=== PATIENT | male | born 1980 | race Two or more races ===

== ENCOUNTER 2016-12-14 11:01 | Outpatient (CLI) | payer BC ==
[2016-12-14 11:28] LABS: BASOPHILS % (AUTO) 0.6 % (0.0-2.0); EOSINOPHILS # (AUTO) 0.1 /CMM (0.0-0.7); EOSINOPHILS % (AUTO) 2.1 % (0.0-6.0); HEMATOCRIT 47 % (39-51); HEMOGLOBIN 16.2 g/dL (13.5-17.5); LYMPHOCYTES # (AUTO) 1.2 /CMM (0.8-4.8); LYMPHOCYTES % (AUTO) 24.4 % (20.0-44.0); MEAN CORPUSCULAR HEMOGLOBIN 30 PG (26.0-33.0); MEAN CORPUSCULAR HGB CONC 34 g/dl (31.0-36.0); MEAN CORPUSCULAR VOLUME 87 fL (80-96); MONOCYTES # (AUTO) 0.3 /CMM (0.1-1.30); MONOCYTES % (AUTO) 5.6 % (2.0-12.0); NEUTROPHILS # (AUTO) 3.3 /CMM (1.8-8.9); NEUTROPHILS % (AUTO) 67.3 % (43.0-81.0); PLATELET COUNT (AUTO) 315 /CMM (150-450); RDW COEFFICIENT OF VARIATION 12.4 (11.5-15.0); RED BLOOD CELL COUNT(AUTO) 5.48 MIL/uL (4.5-6.0); WHITE BLOOD COUNT (AUTO) 4.9 K/uL (4.3-11.0)
[2016-12-14 12:11] LABS: ALBUMIN 4.5 g/dL (3.4-5.0); BILIRUBIN,TOTAL 0.6 mg/dL (0.2-1.0); CALCIUM, SERUM 9.4 mg/dL (8.5-10.1); MAGNESIUM 2.4 mg/dL (1.8-2.4); POTASSIUM 3.9 mmol/L (3.5-5.1); TOTAL PROTEIN, SERUM 8.6 g/dL (6.4-8.2)
[2016-12-14 12:37] LABS: THYROID STIMULATING HORMONE 1.369 uIU/mL (0.358-3.74)
[2016-12-15 12:14] LABS: T3 TOTAL 115 ng/dL (71-180)
[2016-12-15 13:14] LABS: H. PYLORI AB IgA <9.0 units (0.0-8.9)
== END 2016-12-14 23:59 | disposition home or self-care (01) ==
LOC: LAB 11:01
PROVIDERS: ATTEND Family Medicine
DX: R07.9 Chest pain, unspecified (principal)
CPT/HCPCS: 36415; 71020-TC; 80053-TC; 80061-TC; 83735-TC; 84439-TC; 84443-TC; 84480; 85025-TC; 86677

== ENCOUNTER → 2016-12-15 | Outpatient (CLI) | payer BC | END | disposition home or self-care (01) | LOC: CARD 10:51 | PROVIDERS: ATTEND Family Medicine | DX: I34.0 Nonrheumatic mitral (valve) insufficiency (principal) | CPT/HCPCS: 93307-TC ==

== ENCOUNTER 2018-03-18 09:25 | Emergency (ER) | payer BC, OTHER ==
[~2018-03-18] VITALS: Ht 175.3 cm; Wt 74.8 kg
[2018-03-18 09:25] VITALS: BP 140/99
== END 2018-03-18 10:35 | disposition home or self-care (01) ==
LOC: ER 09:33
DX: M76.62 Achilles tendinitis, left leg (principal)
CPT/HCPCS: 73650; 99284; A4606; Z7610

== ENCOUNTER 2019-06-18 13:08 | Emergency (ER) | payer BC, OTHER ==
[~2019-06-18] VITALS: Ht 175.3 cm; Wt 72.6 kg
--- NOTE | 2019-06-18 13:25 | NUR ---
DR BRADY AT BEDSIDE
--- NOTE | 2019-06-18 13:27 | NUR ---
CAME IN FOR COUGH, CONGESTION, AND FEVER, TEMP 99.4, TO ER BED 10, HOOKED TO MONITOR, AWAITING MD CONLEY.
--- NOTE | 2019-06-18 13:43 | NUR ---
RAPID FLU SWAB SENT TO LAB
--- NOTE | 2019-06-18 15:39 | NUR ---
Patient discharged to home in stable condition. Written and verbal after care instructions given. Patient verbalizes understanding of instruction.
[2019-06-18 15:42] VITALS: BP 124/90
== END 2019-06-18 15:42 | disposition home or self-care (01) ==
LOC: ER 13:10
DX: J40 Bronchitis, not specified as acute or chronic (principal); J10.1 Influenza due to other identified influenza virus with other respiratory manifestations
CPT/HCPCS: 71045-TC

== ENCOUNTER 2021-01-11 11:04 | Outpatient (CLI) | payer BC, OTHER ==
[2021-01-11 11:47] LABS: BASOPHILS % (AUTO) 0.6 % (0.0-2.0); EOSINOPHILS % (AUTO) 1.4 % (0.0-6.0); HEMATOCRIT 44 % (39-51); HEMOGLOBIN 14.7 g/dL (13.5-17.5); LYMPHOCYTES # (AUTO) 1.7 K/uL (0.8-4.8); LYMPHOCYTES % (AUTO) 23.2 % (20.0-44.0); MEAN CORPUSCULAR HGB CONC 34 g/dl (31.0-36.0); MEAN CORPUSCULAR VOLUME 88 fL (80-96); MONOCYTES # (AUTO) 0.6 K/uL (0.1-1.30); MONOCYTES % (AUTO) 8.6 % (2.0-12.0); NEUTROPHILS # (AUTO) 4.8 K/uL (1.8-8.9); NEUTROPHILS % (AUTO) 66.2 % (43.0-81.0); PLATELET COUNT (AUTO) 348 K/uL (150-450); RED BLOOD CELL COUNT(AUTO) 4.93 MIL/uL (4.5-6.0); WHITE BLOOD COUNT (AUTO) 7.2 K/uL (4.3-11.0)
[2021-01-11 13:13] LABS: URIC ACID 6.9 mg/dL (2.6-7.2)
[2021-01-11 13:30] LABS: ALBUMIN 3.9 g/dL (3.4-5.0); BILIRUBIN,TOTAL 0.6 mg/dL (0.2-1.0); CALCIUM, SERUM 9.4 mg/dL (8.5-10.1); CREATININE 1.1 mg/dL (0.6-1.3); POTASSIUM 4.3 mmol/L (3.5-5.1); TOTAL PROTEIN, SERUM 8.7 g/dL (6.4-8.2)
== END 2021-01-11 23:59 | disposition home or self-care (01) ==
LOC: LAB 11:04
PROVIDERS: ATTEND Family Medicine
DX: M10.9 Gout, unspecified (principal)
CPT/HCPCS: 36415; 80053-TC; 84550-TC; 85025-TC

== ENCOUNTER 2022-09-09 14:13 | Inpatient (IN) | payer BC, OTHER ==
[~2022-09-09] VITALS: Ht 175.3 cm; Wt 78.5 kg
--- NOTE | 2022-09-09 16:06 | NUR ---
RN ADMITTING NOTES RECEIVED PATIENT VIA GURCHRISTEN ACCOMPANIED BY TWO microarray analyst AND . A/Ox3, ABLE TO MAKE NEEDS KNOWN. ON ROOM AIR NO S/S OF RESPIRATORY DISTRESS. ORIENTED TO ROOM, STAFF, AND CALL LIGHT. IV ACCESS R WRIST #20G, INTACT AND PATENT. FULL BODY ASSESSMENT COMPLETED: CARDIAC WNL, LUNG WNL, GI/ WNL, SKIN INTACT. NO C/O OF PAIN OR DISCOMFORT NOTED. SAFETY MEASURES IN [facility]: BED LOCKED AND IN LOWEST POSITION, HOB ELEVATED, CALL LIGHT WITHIN REACH, SIDE RAILS UPx2. Addendum: 09/09/22 at 1613 by LLOYD PHAN RN ADDENDUM: ATTACHED TO TELE MONITORING SHOWING SINUS RHYTHM HR 72, NO C/O OF CHEST PAIN OR DISCOMFORT.
[2022-09-09] MEDS ORDERED: ACET-868 PO (16:11)
[2022-09-09] MEDS ORDERED: ASPI-992 PO (16:11)
[2022-09-09] MEDS ORDERED: CHLO473M3 MM (16:11)
[2022-09-09] MEDS ORDERED: FAMO20TA8 PO (16:11)
[2022-09-09] MEDS ORDERED: ATOR40TA PO (16:11)
[2022-09-09] MEDS ORDERED: PIPE3.379 IV (16:11)
[2022-09-09] MEDS ORDERED: ENOX40DI SQ (16:11)
[2022-09-09] MEDS ORDERED: LEVA0.6320 IH (16:11)
[2022-09-09] MEDS ORDERED: ONDA4TAB5 PO (16:11)
[2022-09-09 16:25] VITALS: BP 145/99
--- NOTE | 2022-09-09 18:45 | NUR ---
STENOGRAPHER SECRETARY CLOSING NOTES PATIENT AWAKE IN BED, A/Ox3 ABLE TO MAKE NEEDS KNOWN. STABLE ON ROOM AIR, NO S/S OF RESPIRATORY DISTRESS. ON TELE MONITOR SHOWING SINUS RHYTHM HR 77, NO C/O OF CHEST PAIN OR DISCOMFORT. IV ACCESS R WRIST #20G S/L. INTACT AND PATENT. PATIENT CONTINENT USES URINAL. ON BEDREST. SKIN INTACT. SAFETY MEASURES MAINTAINED: BED LOCKED AND IN LOWEST POSITION, HOB ELEVATED, CALL LIGHT WITHIN REACH, SIDE RAILS UPx2. WILL ENDORSE TO NEXT SHIFT ANY ROXANNE.
[2022-09-09] MEDS ORDERED: Z GUARD REMEDY 4 OZ OINT TP PRN (19:00)
[2022-09-09] MEDS ORDERED: MAG HYDROX/AL HYDROX/SIMETH 30 ML UDC PO PRN (19:00)
[2022-09-09] MEDS ORDERED: ZOLPIDEM TARTRATE 5 MG TABLET PO PRN (19:00)
[2022-09-09] MEDS ORDERED: ONDANSETRON HCL/PF 4 MG/2 ML VIAL IVP PRN (19:00)
[2022-09-09] MEDS ORDERED: Medication Not On Formulary EA (Ondansetron Hcl (Zofran) 4 MG) PO PRN (19:00)
[2022-09-09] MEDS ORDERED: ACETAMINOPHEN 325 MG TABLET PO PRN (19:00)
[2022-09-09] MEDS ORDERED: MAGNESIUM HYDROXIDE 30 ML UDC PO PRN (19:00)
[2022-09-09] MEDS: IV NS 0.9% 1,000 ML IV PRN (19:41)
[2022-09-09 20:00] VITALS: BP 143/94
[2022-09-09] MEDS: ALBUTEROL FS 2.5 MG/3 ML VIAL.NEB NEB SCH (20:27)
--- NOTE | 2022-09-09 20:53 | NUR ---
RECEIVED PATIENT IN BED, ALERT/ORIENTED X3, CALM, SOFT SPOKEN, NO COMPLAIN OF PAIN, ROOM AIR, SR ON THE TELE, STARTED ON IVF, BREATHING TREATMENT WAS GIVEN BY RT, S/P EXTUBATION, DIRECT ADMIT FROM [facility]. PER PATIENT, FIRST TIME TO EAT SINCE EXTUBATION. OFFERED JELLO, PUDDING, AND CRACKERS. AT THE BEDSIDE PARTICIPATING IN CARE. KEPT SAFE, WILL CONTINUE TO MONITOR.
[2022-09-10] VITALS: BP 122/80
[2022-09-10 04:00] VITALS: BP 136/91
--- NOTE | 2022-09-10 05:50 | NUR ---
Pt refusing ordered routine ABG at this time. No SOB/resp distress noted at this time.
--- NOTE | 2022-09-10 06:26 | NUR ---
DIRECT ADMIT FROM [facility], [facility] AL[facility]ED MENTAL STATUS. SR ON THE TELE, ON ADMISSION, PATIENT IS ALERT/ORIENTED X4, STABLE ON ROOM AIR, NO COMPLAIN OF PAIN, REGULAR DIET, NO COMPLAIN OF N/V. PER REPORT, EXTUBATED 09/08/22. PULMONARY CONSULT, CHEST XRAY, AM LABS, PT EVAL. REFUSED ABG THIS MORNING.
[2022-09-10] MEDS: IV NS 0.9% 1,000 ML IV PRN (06:38)
[2022-09-10 07:00] VITALS: BP 142/96
[2022-09-10 07:04] LABS: BASOPHILS % (AUTO) 0.3 % (0.0-2.0); HEMATOCRIT 39 % (39-51); HEMOGLOBIN 12.8 g/dL (13.5-17.5); LYMPHOCYTES # (AUTO) 1.2 K/uL (0.8-4.8); LYMPHOCYTES % (AUTO) 11.7 % (20.0-44.0); MEAN CORPUSCULAR HGB CONC 33 g/dl (31.0-36.0); MEAN CORPUSCULAR VOLUME 89 fL (80-96); MONOCYTES # (AUTO) 0.9 K/uL (0.1-1.30); MONOCYTES % (AUTO) 8.3 % (2.0-12.0); NEUTROPHILS # (AUTO) 8.2 K/uL (1.8-8.9); NEUTROPHILS % (AUTO) 78.7 % (43.0-81.0); PLATELET COUNT (AUTO) 284 K/uL (150-450); RED BLOOD CELL COUNT(AUTO) 4.35 MIL/uL (4.5-6.0); WHITE BLOOD COUNT (AUTO) 10.4 K/uL (4.3-11.0)
--- NOTE | 2022-09-10 07:06 | NUR ---
APPLICATION SECURITY SPECIALIST OPENING NOTES RECEIVED PATIENT RESTING IN BED, A/Ox3 ABLE TO MAKE NEEDS KNOWN. ON ROOM AIR, NO S/S OF RESPIRATORY DISTRESS. ON TELE MONITOR SHOWING SINUS RHYTHM HR 70, NO C/O OF CHEST PAIN OR DISCOMFORT. IV ACCESS R WRIST #20G RUNNING NS @75 ML/HR. INTACT AND PATENT. PATIENT CONTINENT USES URINAL. ON BEDREST. SKIN INTACT. SAFETY MEASURES IN PLACE: BED LOCKED AND IN LOWEST POSITION, HOB ELEVATED, CALL LIGHT WITHIN REACH, SIDE RAILS UPx2. WILL CONTINUE TO MONITOR.
[2022-09-10 07:29] LABS: ALBUMIN 2.9 g/dL (3.4-5.0); BILIRUBIN,TOTAL 0.4 mg/dL (0.2-1.0); MAGNESIUM 2.4 mg/dL (1.8-2.4); PHOSPHORUS 3.1 mg/dL (2.5-4.9); POTASSIUM 3.8 mmol/L (3.5-5.1)
[2022-09-10] MEDS: ALBUTEROL FS 2.5 MG/3 ML VIAL.NEB NEB SCH ×4 (07:57→19:49)
[2022-09-10] MEDS: ENOXAPARIN SODIUM 40 MG/0.4 ML DISP.SYRIN SQ SCH (08:53)
[2022-09-10] MEDS: CHLORHEXIDINE GLUCONATE 15 ML UDC MM SCH ×3 (08:55→16:59)
[2022-09-10] MEDS: ATORVASTATIN 40 MG TABLET PO SCH (08:56)
[2022-09-10] MEDS: FAMOTIDINE (20 MG) 20 MG TABLET PO SCH ×2 (08:56→16:56)
[2022-09-10] MEDS: ASPIRIN 325 MG TABLET PO SCH (08:56)
[2022-09-10] MEDS ORDERED: COLC0.6C3 PO (12:16)
[2022-09-10] MEDS ORDERED: Medication Not On Formulary EA (Colchicine 0.6 MG) PO PRN (12:30)
[2022-09-10] MEDS: COLCHICINE 0.6 MG TABLET PO PRN ×2 (15:41→19:48)
--- NOTE | 2022-09-10 15:50 | NUR ---
RN NOTES PATIENT COMPLAINED OF GOUT SYMPTOMS, PRN COLCHICINE ADMINISTERED.
[2022-09-10 16:00] VITALS: BP 158/101
[2022-09-10] MEDS: ACETAMINOPHEN 325 MG TABLET PO PRN ×2 (17:00→21:35)
--- NOTE | 2022-09-10 18:53 | NUR ---
TUBE BENDING MACHINE OPERATOR CLOSING NOTES PATIENT AWAKE IN BED, A/Ox3 ABLE TO MAKE NEEDS KNOWN. STABLE ON ROOM AIR, NO S/S OF RESPIRATORY DISTRESS. ON TELE MONITOR SHOWING SINUS RHYTHM HR 66, NO C/O OF CHEST PAIN OR DISCOMFORT. IV ACCESS R WRIST #20G RUNNING NS @75 ML/HR. INTACT AND PATENT. PATIENT CONTINENT USES URINAL. ON BEDREST. SKIN INTACT. SAFETY MEASURES MAINTAINED: BED LOCKED AND IN LOWEST POSITION, HOB ELEVATED, CALL LIGHT WITHIN REACH, SIDE RAILS UPx2. WILL ENDORSE TO NEXT SHIFT ANY ROXANNE.
--- NOTE | 2022-09-10 19:35 | NUR ---
WATER SOFTENER INSTALLER OPENING NOTES PATIENT AWAKE IN BED, A/Ox3 ABLE TO MAKE NEEDS KNOWN. STABLE ON ROOM AIR, NO S/S OF RESPIRATORY DISTRESS. ON TELE MONITOR SHOWING SINUS RHYTHM HR 66, NO C/O OF CHEST PAIN OR DISCOMFORT. IV ACCESS R WRIST #20G RUNNING NS @75 ML/HR. INTACT AND PATENT. PATIENT CONTINENT USES URINAL. ON BEDREST. SKIN INTACT. SAFETY MEASURES MAINTAINED: BED LOCKED AND IN LOWEST POSITION, HOB ELEVATED, CALL LIGHT WITHIN REACH, SIDE RAILS UPx2.
--- NOTE | 2022-09-10 19:48 | NUR ---
RN NOTE PRN GOUT MEDICATION GIVEN TOLERATED WELL.
[2022-09-10 20:00] VITALS: BP 145/96
--- NOTE | 2022-09-10 21:35 | NUR ---
RN NOTE PRN TYLENOL GIVEN TOLERATED WELL.
[2022-09-10] MEDS ORDERED: INDOMETHACIN 25 MG CAPSULE ONE (22:09)
[2022-09-10] MEDS: INDOMETHACIN 25 MG CAPSULE PO PRN (22:12)
--- NOTE | 2022-09-10 22:15 | NUR ---
RN NOTE PRN INDOCIN AND TYLENOL GIVEN AND TOLERATE WELL.
[2022-09-11] VITALS: BP 130/75
[2022-09-11 04:00] VITALS: BP 131/83
--- NOTE | 2022-09-11 06:40 | NUR ---
MAGAZINE PUBLISHER CLOSING NOTES PATIENT AWAKE IN BED, A/Ox3 ABLE TO MAKE NEEDS KNOWN. STABLE ON ROOM AIR, NO S/S OF RESPIRATORY DISTRESS. ON TELE MONITOR SHOWING SINUS RHYTHM HR 60S, NO C/O OF CHEST PAIN OR DISCOMFORT. IV ACCESS R WRIST #20G RUNNING NS @75 ML/HR. INTACT AND PATENT. PATIENT CONTINENT USES URINAL. ON BEDREST. SKIN INTACT. SAFETY MEASURES MAINTAINED: BED LOCKED AND IN LOWEST POSITION, HOB ELEVATED, CALL LIGHT WITHIN REACH, SIDE RAILS UPx2. WILL ENDORSE CARE TO DAY SHIFT NURSE.
--- NOTE | 2022-09-11 07:30 | NUR ---
PATIENT RECEIVED RESTING COMFORTABLY IN BED. NO S/S OR C/O PAIN OR DISTRESS NOTED. SIDE RAILS UP X2, CALL LIGHT LEFT WITHIN REACH. WILL CONTINUE PLAN OF CARE.
[2022-09-11 08:38] VITALS: BP 131/96
[2022-09-11] MEDS: ALBUTEROL FS 2.5 MG/3 ML VIAL.NEB NEB SCH ×2 (08:44→11:22)
[2022-09-11] MEDS: CHLORHEXIDINE GLUCONATE 15 ML UDC MM SCH ×2 (09:19→12:25)
[2022-09-11] MEDS: ATORVASTATIN 40 MG TABLET PO SCH (09:20)
[2022-09-11] MEDS: ASPIRIN 325 MG TABLET PO SCH (09:20)
[2022-09-11] MEDS: FAMOTIDINE (20 MG) 20 MG TABLET PO SCH (09:20)
[2022-09-11] MEDS: ENOXAPARIN SODIUM 40 MG/0.4 ML DISP.SYRIN SQ SCH (09:22)
[2022-09-11 09:41] LABS: BASOPHILS % (AUTO) 0.3 % (0.0-2.0); HEMATOCRIT 42 % (39-51); HEMOGLOBIN 13.6 g/dL (13.5-17.5); LYMPHOCYTES # (AUTO) 1.1 K/uL (0.8-4.8); MEAN CORPUSCULAR HGB CONC 33 g/dl (31.0-36.0); MEAN CORPUSCULAR VOLUME 88 fL (80-96); MONOCYTES # (AUTO) 1.1 K/uL (0.1-1.30); MONOCYTES % (AUTO) 11.6 % (2.0-12.0); NEUTROPHILS # (AUTO) 7.3 K/uL (1.8-8.9); NEUTROPHILS % (AUTO) 75.1 % (43.0-81.0); PLATELET COUNT (AUTO) 314 K/uL (150-450); RED BLOOD CELL COUNT(AUTO) 4.74 MIL/uL (4.5-6.0); WHITE BLOOD COUNT (AUTO) 9.7 K/uL (4.3-11.0)
[2022-09-11 10:00] VITALS: BP 131/96
[2022-09-11 10:11] LABS: CALCIUM, SERUM 8.8 mg/dL (8.5-10.1); POTASSIUM 3.3 mmol/L (3.5-5.1)
[2022-09-11] MEDS: COLCHICINE 0.6 MG TABLET PO PRN (10:40)
[2022-09-11] MEDS: INDOMETHACIN 25 MG CAPSULE PO PRN (10:40)
[2022-09-11] MEDS ORDERED: ASPI-1169 PO (11:34)
[2022-09-11] MEDS ORDERED: ATOR40TA PO (11:34)
[2022-09-11] MEDS ORDERED: AMOX-430 PO (11:34)
[2022-09-11 11:52] VITALS: BP 148/95
[2022-09-11] MEDS ORDERED: PIPERACILLIN /TAZOBACTAM 3.375 G in IV D5W 50 ML IV SCH (12:00)
--- NOTE | 2022-09-11 16:10 | NUR ---
DISCHARGE INSTRUCTIONS GIVEN ORDERED. ENCOURAGED TO FOLLOW UP WITH PRIMARY DOCTOR INSTRUCTED. ALL QUESTIONS AND CONCERNS ADDRESSED. PATIENT VERBALIZED UNDERSTANDING. MEDIATION RECONCILIATION FORM COMPLETED AND COPY GIVEN TO PATIENT. IV REMOVED WITH CATHETER INTACT. PRESSURE DRESSING APPLIED. PATIENT TAKEN TO VEHICLE VIA WHEELCHAIR WITH ALL PERSONAL BELONGINGS, ACCOMPANIED BY STAFF AND FAMILY MEMBER. NO DISTRESS NOTED AT TIME OF DEPARTURE.
--- NOTE | 2022-09-11 16:20 | NUR ---
RECEIVED CALL FROM SISTER IN LAW SHE STATED PATIENT ADMITTED TO HERSELF, HIS BROTHER (), AND THAT HE ATTEMPTED SUICIDE, WHICH IS WHAT LEAD TO THIS ADMISSION. IN LAW CALLED TO SEEK ADVICE FOR NEXT STEPS. I CONSULTED WITH CHARGE NURSE AND ATTENDING REDUCING SALON ATTENDANT. I WAS ADVISED TO REACH OUT TO PATIENT TO ASSESS IF PATIENT CURRENTLY HAS SUICIDAL IDEATION AND A PLAN. Addendum: 09/11/22 at 1840 by ALTON WHEATLEY RN I SPOKE WITH PATIENT OVER THE PHONE AND HE STATED HE DOES NOT CURRENTLY HAVE SUICIDAL IDEATION NOR A PLAN TO KILL HIMSELF.
== END 2022-09-11 16:15 | disposition home or self-care (01) | DRG 177 ==
LOC: TELE 15:49
PROVIDERS: ADMIT Nurse Practitioner Acute Care; ATTEND Nurse Practitioner Acute Care
DX: J69.0 Pneumonitis due to inhalation of food and vomit (principal); G92.8 Other toxic encephalopathy; J96.01 Acute respiratory failure with hypoxia; M10.9 Gout, unspecified
CPT/HCPCS: 36415; 71045-TC; 80048-TC; 80053-TC; 83735-TC; 84100-TC; 85025-TC; 87081-TC; 94799-TC; 97110-TC; 97116-TC; A4223; G0378; J1650; J2543; J7030; J7060

== ENCOUNTER 2022-09-21 12:11 | Outpatient (CLI) | payer BC, OTHER ==
[~2022-09-21 12:11] MED LIST: AMOX-430 PO; ASPI-1169 PO; ATOR40TA PO; COLC0.6C3 PO
== END 2022-09-21 23:59 | disposition home or self-care (01) ==
LOC: RAD 12:11
PROVIDERS: ATTEND Internal Medicine Pulmonary Disease
DX: R07.9 Chest pain, unspecified (principal)
CPT/HCPCS: 71046

== ENCOUNTER → 2022-10-31 | Outpatient (CLI) | payer BC, OTHER | END | disposition home or self-care (01) | LOC: RAD 10:27 | PROVIDERS: ATTEND Family Medicine | DX: M25.572 Pain in left ankle and joints of left foot (principal); M79.672 Pain in left foot | CPT/HCPCS: 73610-TC; 73630-TC ==

== ENCOUNTER 2024-12-26 08:54 | Outpatient (CLI) | payer BC | END 2024-12-26 23:59 | disposition home or self-care (01) | LOC: RAD 08:54 | PROVIDERS: ATTEND Family Medicine | DX: R05.1 Acute cough (principal) | CPT/HCPCS: 71046 ==